=== PATIENT | male | born 1950 | race Caucasian/White ===

== ENCOUNTER 2020-12-13 08:18 | Outpatient (CLI) | payer OTHER, MEDICARE, MEDICAID | END 2020-12-13 08:19 | disposition home or self-care (01) | LOC: CSHWCC 08:18 | PROVIDERS: ATTEND Nurse Practitioner Family | DX: S81.802A Unspecified open wound, left lower leg, initial encounter (principal); E78.2 Mixed hyperlipidemia; G89.11 Acute pain due to trauma; I11.0 Hypertensive heart disease with heart failure; I50.32 Chronic diastolic (congestive) heart failure; I73.9 Peripheral vascular disease, unspecified; I89.0 Lymphedema, not elsewhere classified; R60.0 Localized edema; W01.198S Fall on same level from slipping, tripping and stumbling with subsequent striking against other object, sequela | CPT/HCPCS: 11042; 29581; 97139; G0463; 99213 ==

== ENCOUNTER 2020-12-23 11:28 | Outpatient (CLI) | payer MEDICARE, MEDICAID | END 2020-12-23 11:29 | disposition home or self-care (01) | LOC: CSHWCC 11:28 | PROVIDERS: ATTEND Nurse Practitioner Family | DX: S81.802D Unspecified open wound, left lower leg, subsequent encounter (principal); R60.0 Localized edema; E78.2 Mixed hyperlipidemia; G89.11 Acute pain due to trauma; I11.0 Hypertensive heart disease with heart failure; I50.32 Chronic diastolic (congestive) heart failure; I89.0 Lymphedema, not elsewhere classified; I73.9 Peripheral vascular disease, unspecified; W01.198D Fall on same level from slipping, tripping and stumbling with subsequent striking against other object, subsequent encounter ==

== ENCOUNTER 2020-12-30 11:07 | Outpatient (CLI) | payer OTHER, MEDICARE, MEDICAID | END 2020-12-30 11:08 | disposition home or self-care (01) | LOC: CSHWCC 11:07 | PROVIDERS: ATTEND Nurse Practitioner Family | DX: S81.802D Unspecified open wound, left lower leg, subsequent encounter (principal); R60.0 Localized edema; E78.2 Mixed hyperlipidemia; G89.11 Acute pain due to trauma; I11.0 Hypertensive heart disease with heart failure; I50.32 Chronic diastolic (congestive) heart failure; I73.9 Peripheral vascular disease, unspecified; I89.0 Lymphedema, not elsewhere classified; W01.198D Fall on same level from slipping, tripping and stumbling with subsequent striking against other object, subsequent encounter | CPT/HCPCS: 97139; G0463; 99213 ==

== ENCOUNTER 2021-01-20 08:52 | Outpatient (CLI) | payer OTHER, MEDICARE, MEDICAID | END 2021-01-20 08:53 | disposition home or self-care (01) | LOC: CSHWCC 08:52 | PROVIDERS: ATTEND Nurse Practitioner Family | DX: S81.802A Unspecified open wound, left lower leg, initial encounter (principal); E78.2 Mixed hyperlipidemia; G89.11 Acute pain due to trauma; I11.0 Hypertensive heart disease with heart failure; I50.32 Chronic diastolic (congestive) heart failure; I73.9 Peripheral vascular disease, unspecified; I89.0 Lymphedema, not elsewhere classified; R60.0 Localized edema; W01.198S Fall on same level from slipping, tripping and stumbling with subsequent striking against other object, sequela | CPT/HCPCS: 97139; G0463; 99213 ==

== ENCOUNTER 2021-02-03 10:51 | Outpatient (CLI) | payer MEDICARE, MEDICAID | END 2021-02-03 10:52 | disposition home or self-care (01) | LOC: CSHWCC 10:51 | PROVIDERS: ATTEND Nurse Practitioner Family | DX: S81.802A Unspecified open wound, left lower leg, initial encounter (principal); E78.2 Mixed hyperlipidemia; G89.11 Acute pain due to trauma; I11.0 Hypertensive heart disease with heart failure; I50.32 Chronic diastolic (congestive) heart failure; I73.9 Peripheral vascular disease, unspecified; I89.0 Lymphedema, not elsewhere classified; R60.0 Localized edema; W01.198S Fall on same level from slipping, tripping and stumbling with subsequent striking against other object, sequela ==

== ENCOUNTER 2021-02-25 11:17 | Outpatient (CLI) | payer MEDICARE, MEDICAID | END 2021-02-25 11:18 | disposition home or self-care (01) | LOC: CSHWCC 11:17 | PROVIDERS: ATTEND Nurse Practitioner Family | DX: S81.802D Unspecified open wound, left lower leg, subsequent encounter (principal); R60.0 Localized edema; E78.2 Mixed hyperlipidemia; G89.11 Acute pain due to trauma; I11.0 Hypertensive heart disease with heart failure; I50.32 Chronic diastolic (congestive) heart failure; I73.9 Peripheral vascular disease, unspecified; I89.0 Lymphedema, not elsewhere classified; W01.198D Fall on same level from slipping, tripping and stumbling with subsequent striking against other object, subsequent encounter | CPT/HCPCS: 97139; G0463; 99213 ==